=== PATIENT | male | born 1985 | race Caucasian/White ===

== ENCOUNTER 2017-07-15 13:40 | Outpatient (CLI) | payer OTHER | END 2017-07-15 13:41 | disposition home or self-care (01) | LOC: BICRAD 13:40 | PROVIDERS: ATTEND Nurse Practitioner Family | DX: J18.9 Pneumonia, unspecified organism (principal) | CPT/HCPCS: 71046 ==

== ENCOUNTER 2017-10-03 15:07 | Outpatient (CLI) | payer OTHER | END 2017-10-03 15:08 | disposition home or self-care (01) | LOC: BICULT 15:07 | PROVIDERS: ATTEND Nurse Practitioner Family | DX: R10.9 Unspecified abdominal pain (principal) | CPT/HCPCS: 76705 ==

== ENCOUNTER 2017-12-17 12:54 | Outpatient (CLI) | payer OTHER ==
[2017-12-17 14:05] LABS: #Basophils 0.1 thou/uL (0.0-0.2); #Lymphocytes 2.1 thou/uL (1.20-3.40); #Monocytes 0.4 thou/uL (0.11-0.59); #Neutrophils 4.6 thou/uL (1.40-6.50); %Basophils 0.8 % (0.0-1.0); %Eosinophils 0.3 % (0.0-10.0); %Lymphocytes 29.4 % (21.0-51.0); %Monocytes 5.1 % (0.0-10.0); %Neutrophils 64.5 % (42.0-75.0); Hemoglobin 15.3 g/dL (14.0-18.0); Mean Corpuscular HGB CONC 34.9 g/dL (32.0-36.0); Mean Corpuscular Hemoglobin 31.7 pg (27.0-31.0); Mean Corpuscular Volume 90.7 fL (78.0-98.0); Mean Platelet Volume 7.3 fL (7.4-10.4); Platelet Count 178 thou/uL (130-400); RBC Distribution Width 11.4 % (11.5-14.5); Red Blood Cell (RBC) Count 4.82 mill/uL (4.70-6.10); White Blood Cell (WBC) Count 7.1 thou/uL (4.8-10.8)
[2017-12-17 14:32] LABS: Anion Gap 16 mmol/L (10-20); BUN (Urea Nitrogen) 18 mg/dL (8.9-20.6); Calc. Creatinine Clearance 0 mL/min (70-130); Calcium 10.4 mg/dL (7.8-10.44); Carbon Dioxide 28 mmol/L (22-29); Chloride 101 mmol/L (98-107); Estimated GFR-MDRD 61; Glucose 84 mg/dL (70-105); Potassium 4.5 mmol/L (3.5-5.1); Sodium 140 mmol/L (136-145)
== END 2017-12-17 12:55 | disposition home or self-care (01) ==
LOC: LABBT 12:54
PROVIDERS: ATTEND Specialist
DX: Z01.812 Encounter for preprocedural laboratory examination (principal); K40.90 Unilateral inguinal hernia, without obstruction or gangrene, not specified as recurrent
CPT/HCPCS: 80048; 85025

== ENCOUNTER 2017-12-25 05:43 | Day surgery (SDC) | payer OTHER ==
[2017-12-17 13:19] VITALS: BMI 28.7
--- NOTE | 2017-12-24 11:10 | HP ---
HISTORY OF PRESENT ILLNESS: A 32-year-old male who works out at [employer] works and works for [employer] in [employer], followed by Dr. Paul Hernandez. The patient has had a bulge in his right cordelia in for the past 2-3 months that is bothersome to him. It enlarges when he is active, reduces at nigh t. The patient is seen by Dr. Hernandez, referred to Dr. Sanchez and has had an ultrasound. Ultraso und was unremarkable. The patient is , does not have any children. Dr. Sanchez appreciat es a right inguinal hernia. ALLERGIES: SULFA. TOBACCO: None. ALCOHOL: Rarely. MEDICATIONS: None routinely. PAST SURGICAL HISTORY: Right hand surgery. PAST MEDICAL HISTORY: Noncontributory. REVIEW OF SYSTEMS: Noncontributory. PHYSICAL EXAMINATION: VITAL SIGNS: Weight 206 pounds, 5 foot 10, 134/75, 49, 99 degrees. HEENT: Unremarkable. LUNGS: Clear to auscultation. CARDIAC: Regular rate and rhythm without murmur or gallop. ABDOMEN: Soft, nontender. EXTREMITIES: Unremarkable. : Testicles normal. Left groin without hernia. Right groin reveals a hernia on Valsalva. ASSESSMENT AND PLAN: Right inguinal hernia. He may have a small left inguinal hernia. I have talke d to him about robotic endoscopic mesh repair of inguinal hernia repair. He understands the risks of infection, bleeding, reoperation, chronic pain, and consents. He understands risks, benefits, and c onsents. He understands that if he is found to have a left inguinal hernia on laparoscopy then repai r will be undertaken with mesh.
[2017-12-25] MEDS ORDERED: CEFAZOLIN/Water 2 GM/20 ML SYRINGE ONE (06:08)
[2017-12-25] MEDS ORDERED: Ketorolac Tromethamine 30 MG/ML VIAL ONE (06:09)
[2017-12-25] MEDS ORDERED: Bupivacaine HCl 0.5%/Epinephrine 1:200,000/PF 30 ml Vial ONE (06:35)
[2017-12-25] MEDS ORDERED: Fentanyl 100 MCG/2 ML VIAL ONE ×3 (06:39→10:10)
[2017-12-25] MEDS ORDERED: Midazolam HCl 2 mg/2 ml Vial ONE (07:21)
[2017-12-25] MEDS ORDERED: Promethazine HCl 25 MG/ML VIAL ONE (11:13)
[2017-12-25] MEDS ORDERED: HYDROcodone/Acetaminophen 5/325 mg Tablet ONE (11:14)
--- NOTE | 2017-12-25 12:00 | OP ---
PREOPERATIVE DIAGNOSIS: Right inguinal hernia, indirect. POSTOPERATIVE DIAGNOSIS: Right inguinal hernia, indirect. PROCEDURE: 3DMax mesh robotic endoscopic laparoscopic repair, right inguinal hernia, indirect. SURGEON: Dr. Bhavin Nava. ANESTHESIA: General. Local 0.5% Marcaine with epinephrine. FINDINGS: Indirect right inguinal hernia, large hernia sac. No left inguinal hernia. PROCEDURE IN DETAIL: The patient was taken to the operating room under general anesthesia in supine position. Patient was slightly flexed in this Trendelenburg. Abdomen clipped of hair, prepared with ChloraPrep, draped in routine fashion. Local anesthetic infiltrated into the skin and subcutaneous tissue about each port site. For supraumbilical midline incision made and pneumoperitoneum to 15 mmH g obtained with the Veress needle, replacing with 11 port and robotic camera placed and left lateral and right lateral subcostal incision made and 8 ports placed. Robotic right inguinal hernia repair u ndertaken and is an indirect hernia defect was noted. Left groin was without hernia. The peritoneum was taken down from above this defect from the midline to the anterior superior iliac spine and the peritoneal flap dropped and cord structures dissected free, freeing the hernia sac from the cord stru ctures and placed a 3DMax mesh over the hernia defect covering Jj's ligament and the cord structu res and the epigastric artery, which had been identified. Mesh secured with 3-0 Vicryl to Jj's l igament and to the abdominal wall just right lateral epigastric vessels. A peritoneal flap closed wi th continuous suture of 2-0 Stratafix continuous suture. Good hernia repair under appreciated. Good hemostasis had been obtained as all needles were removed. Pneumoperitoneum reduced and all skin inc isions approximated with interrupted subdermal 4-0 Monocryl and DermaGlue applied.
[2017-12-25] MEDS ORDERED: Ondansetron HCl/PF 4 MG/2 ML Vial ONE (13:25)
[2017-12-25] MEDS ORDERED: PROPOFOL 200 MG/20 ML VIAL ONE (13:25)
[2017-12-25] MEDS ORDERED: PHENYLEPHRINE-NS 100 MCG/ML 10 ML SYRINGE ONE (13:25)
[2017-12-25] MEDS ORDERED: Glycopyrrolate 0.2 MG/ML 5 ML SYRINGE ONE (13:25)
[2017-12-25] MEDS ORDERED: Dexamethasone 20 MG/5 ML VIAL ONE (13:25)
[2017-12-25] MEDS ORDERED: Lidocaine 1% PF 5 ML VIAL ONE (13:25)
== END 2017-12-25 12:20 | disposition home or self-care (01) ==
LOC: SDC 05:43
PROVIDERS: ATTEND Specialist
PROC: 0YU54JZ Supplement Right Inguinal Region with Synthetic Substitute, Percutaneous Endoscopic Approach (ICD-10-PCS; principal; 2017-12-25)
DX: K40.90 Unilateral inguinal hernia, without obstruction or gangrene, not specified as recurrent (principal); Z88.2 Allergy status to sulfonamides; Z79.899 Other long term (current) drug therapy
CPT/HCPCS: 96374; 96375; C1781; J0131; J0670; J1100; J1885; J2001; J2250; J2405; J2550; J2704; J3010

== ENCOUNTER 2022-09-07 08:31 | Day surgery (SDC) | payer BC ==
[2022-09-06 12:39] VITALS: BMI 30.4
[2022-09-07] MEDS ORDERED: Ketorolac Tromethamine 30 MG/ML VIAL ONE (08:58)
[2022-09-07] MEDS ORDERED: Acetaminophen 500 MG TAB ONE (08:58)
[2022-09-07] MEDS ORDERED: Bupivacaine/Epinephrine 0.25% 30 ML VIAL ONE (09:24)
[2022-09-07] MEDS ORDERED: CEFAZOLIN 2 GM VIAL ONE (09:31)
[2022-09-07] MEDS ORDERED: Sodium Chloride 0.9% 100 ML ONE (09:31)
[2022-09-07] MEDS ORDERED: HYDROmorphone 0.5 MG/0.5 ML SYRINGE ONE ×2 (09:41→11:23)
[2022-09-07] MEDS ORDERED: FENTANYL 50 MCG/ML 1 ML VIAL ONE ×3 (09:41→11:16)
[2022-09-07] MEDS ORDERED: Lidocaine 1% PF 5 ML VIAL ONE (09:45)
[2022-09-07] MEDS ORDERED: Rocuronium Bromide 10 MG/ML (10ML VIAL) ONE (09:45)
[2022-09-07] MEDS ORDERED: Glycopyrrolate 0.2 MG/ML 5 ML SYRINGE ONE (09:45)
[2022-09-07] MEDS ORDERED: Ondansetron PF 4 MG/2 ML Vial ONE ×2 (09:45→11:54)
[2022-09-07] MEDS ORDERED: PROPOFOL 200 MG/20 ML VIAL ONE (09:45)
[2022-09-07] MEDS ORDERED: Phenylephrine 10 MG/ML VIAL ONE (09:45)
[2022-09-07] MEDS ORDERED: NEOSTIGMINE 3 MG/3 ML SYR 3 MG/3 ML SYRINGE ONE (09:45)
[2022-09-07] MEDS ORDERED: ePHEDrine 50 MG/ML VIAL ONE (09:45)
[2022-09-07] MEDS ORDERED: HYDROcodone/Acetaminophen 5/325 mg Tablet ONE (12:19)
== END 2022-09-07 13:00 | disposition home or self-care (01) ==
LOC: SDC 08:31
PROVIDERS: ATTEND Specialist
PROC: 8E0W4CZ Robotic Assisted Procedure of Trunk Region, Percutaneous Endoscopic Approach (ICD-10-PCS; principal; 2022-09-07)
PROC: 0WUF4JZ Supplement Abdominal Wall with Synthetic Substitute, Percutaneous Endoscopic Approach (ICD-10-PCS; principal; 2022-09-07)
DX: K43.2 Incisional hernia without obstruction or gangrene (principal); Z79.890 Hormone replacement therapy; Z88.2 Allergy status to sulfonamides
CPT/HCPCS: C1781; J1170; J1885; J2370; J2405; J2704; J3010; J3490

== ENCOUNTER 2024-01-02 13:20 | Outpatient (CLI) | payer BC | END 2024-01-02 13:21 | disposition home or self-care (01) | LOC: RAD 13:20 | PROVIDERS: ATTEND Podiatrist | DX: S82.832D Other fracture of upper and lower end of left fibula, subsequent encounter for closed fracture with routine healing (principal); M79.89 Other specified soft tissue disorders; M25.472 Effusion, left ankle ==